=== PATIENT | male | born 1955 | race Caucasian/White ===

== ENCOUNTER 2017-04-08 11:15 | Outpatient (CLI) ==
[2015-05-02 15:06] VITALS: BMI 33.0
== END 2017-04-08 11:16 | disposition home or self-care (01) ==
LOC: LAB 11:15
PROVIDERS: ATTEND Nurse Practitioner Family
DX: E78.5 Hyperlipidemia, unspecified (principal); Z95.5 Presence of coronary angioplasty implant and graft; Z72.0 Tobacco use; Z12.5 Encounter for screening for malignant neoplasm of prostate
CPT/HCPCS: 36415; 80053; 80061; 84443; 85025

== ENCOUNTER 2017-04-14 09:16 | Outpatient (CLI) ==
[2015-05-02 15:06] VITALS: BMI 33.0
--- NOTE | 2017-04-14 12:00 | CT ---
Exam: CT lumbar spine HISTORY: Low back pain. Procedures: 3 mm contiguous axial images were obtained through the lumbar spine without the use of c ontrast. Sagittal and coronal reformatted images were also created and reviewed. Findings: There are five [id number], lumbarized vertebrae in approximate anatomic alignment. Th ere has been osseous incorporation of the interbody cage at the L4-5 disc space. There is no acute f racture or listhesis. Mild degenerative findings are noted in the sacroiliac joints. Limited visualiz ation of the adjacent soft tissues demonstrates no hydronephrosis. The abdominal aorta is nondilated . There is no paraspinal fluid collection. Individual disc levels are evaluated as follows there is mild neural foraminal stenosis noted at T10-11 and T11-12 secondary to facet hypertrophy combining w ith congenitally shortened pedicles. At T12-L1 there is no significant disc bulge, central spinal canal or neural foraminal stenosis. At L1-2 there is no significant disc bulge, central spinal canal or neural foraminal stenosis. At L2-3 there is a mild circumferential disc bulge without central spinal canal stenosis or significa nt neural foraminal stenosis. At L3-4 there is a mild sequential disc bulge which combines with facet and ligamentous hypertrophy. There is mild bilateral neural foraminal stenosis. At L4-5 there is a mild disc marginal osteophyte complex without central spinal canal stenosis. Mild bilateral neural foraminal stenosis is noted secondary to facet and uncinate hypertrophy. At L5-S1 there is a minimal disc bulge without central spinal canal stenosis. Mild bilateral neural foraminal stenosis is noted bilaterally. Impressions: Osseous incorporation of the L4-5 interbody cage. No acute fracture or listhesis. No central spinal canal stenosis. Mild bilateral neural foraminal stenosis at L3-4, L4-5 and L5-S1.
== END 2017-04-14 09:17 | disposition home or self-care (01) ==
LOC: RAD 09:16
PROVIDERS: ATTEND Nurse Practitioner Family
DX: M54.5 Low back pain (principal); G89.29 Other chronic pain; Z98.890 Other specified postprocedural states

== ENCOUNTER 2017-05-20 18:23 | Outpatient (CLI) ==
[2015-05-02 15:06] VITALS: BMI 33.0
== END 2017-05-20 18:24 | disposition left against medical advice (07) ==
LOC: AMBL 18:23
PROVIDERS: ATTEND Internal Medicine
DX: Z04.3 Encounter for examination and observation following other accident (principal); V49.40XA Driver injured in collision with unspecified motor vehicles in traffic accident, initial encounter

== ENCOUNTER 2017-05-20 23:14 | Outpatient (CLI) ==
[2015-05-02 15:06] VITALS: BMI 33.0
== END 2017-05-20 23:15 | disposition short-term general hospital (02) ==
LOC: AMBL 23:14
PROVIDERS: ATTEND Internal Medicine Geriatric Medicine
DX: M54.9 Dorsalgia, unspecified (principal); V89.2XXA Person injured in unspecified motor-vehicle accident, traffic, initial encounter

== ENCOUNTER 2017-05-24 18:52 | Emergency (ER) ==
[2017-05-24 19:09] VITALS: BP 135/88; TEMP 99; BMI 29.8
[2017-05-24] MEDS ORDERED: TORADOL IM STA (19:37)
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
== END 2017-05-24 20:12 | disposition home or self-care (01) ==
LOC: ED 18:52
DX: S39.012A Strain of muscle, fascia and tendon of lower back, initial encounter (principal); M54.2 Cervicalgia; V89.2XXA Person injured in unspecified motor-vehicle accident, traffic, initial encounter; F17.210 Nicotine dependence, cigarettes, uncomplicated
CPT/HCPCS: 96372; 99282

== ENCOUNTER 2017-06-03 02:36 | Emergency (ER) ==
[2017-06-03 02:58] VITALS: BP 155/107; TEMP 97.3; BMI 32.1
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
== END 2017-06-03 03:20 | disposition home or self-care (01) ==
LOC: ED 02:36
DX: M16.12 Unilateral primary osteoarthritis, left hip (principal); F17.210 Nicotine dependence, cigarettes, uncomplicated
CPT/HCPCS: 99282

== ENCOUNTER 2018-04-21 03:54 | Outpatient (CLI) | payer OTHER | END 2018-04-21 04:05 | disposition short-term general hospital (02) | LOC: AMBL 03:54 | PROVIDERS: ATTEND Family Medicine | DX: R22.2 Localized swelling, mass and lump, trunk (principal) ==